=== PATIENT | female | born 1995 | race Caucasian/White ===

== ENCOUNTER 2021-11-21 12:18 | Emergency (ER) | payer MEDICAID ==
[~2021-11-21] VITALS: Ht 160 cm; Wt 59.9 kg
[2021-11-21 13:08] VITALS: BP 104/52
== END 2021-11-21 13:43 | disposition home or self-care (01) ==
LOC: ER 12:18
DX: O20.0 Threatened abortion (principal); Z3A.01 Less than 8 weeks gestation of pregnancy

== ENCOUNTER 2021-11-24 12:14 | Emergency (ER) | payer MEDICAID ==
[~2021-11-24] VITALS: Ht 157.5 cm; Wt 59.0 kg
[2021-11-24 20:45] VITALS: BP 101/61
== END 2021-11-24 21:08 | disposition home or self-care (01) ==
LOC: ER 12:14
DX: O20.8 Other hemorrhage in early pregnancy (principal); O99.511 Diseases of the respiratory system complicating pregnancy, first trimester; J45.909 Unspecified asthma, uncomplicated; Z3A.00 Weeks of gestation of pregnancy not specified
CPT/HCPCS: 36415; 76801; 84702